=== PATIENT | female | born 1965 | race Caucasian/White ===

== ENCOUNTER → 2022-04-29 | Outpatient (CLI) | payer BC ==
--- NOTE | 2022-04-29 10:57 | Diagnostic Imaging Report ---
PROCEDURE: Pelvic comp/transvaginal sonogram. TECHNIQUE: Complete transabdominal and transvaginal pelvic ultrasound was performed. In addition, limited pelvic Doppler was performed. INDICATION: Postmenopausal bleeding. Uterus measures 7.6 x 4.6 x 4.1 cm. The endometrium is mildly thickened at 7 mm. There is a area of heterogeneity in anterior uterine body measuring 3.2 x 2.1 x 2.1 cm, perhaps a fibroid. Ovaries cannot be visualized. No adnexal mass or free fluid is detected. IMPRESSION: 1. Mildly thickened endometrium for postmenopausal patient at 7 mm. 2. Probable uterine fibroid. Dictated by: Dictated on workstation # [id number]
== END ==
LOC: RAD FS 08:41
PROVIDERS: ATTEND Obstetrics & Gynecology
DX: N95.0 Postmenopausal bleeding (principal); R93.89 Abnormal findings on diagnostic imaging of other specified body structures
CPT/HCPCS: 76830; 76856